=== PATIENT | female | born 1970 | race Caucasian/White ===

== ENCOUNTER 2018-05-09 07:42 | Inpatient (IN) | payer BC, OTHER ==
--- NOTE | 2018-05-09 08:35 | PDOC ---
History of Present Illness - General Chief Complaint: Chest Pain Stated Complaint: CHEST PAIN,HTN Time Seen by Provider: 05/09/18 08:02 - History of Present Illness Initial Comments: 05/09/18 08:13 47 yo female with PMH HTN, NIDDM, Hypothyroidism presents this morning with complaint of chest tightness, difficulty breathing, and feeling flushed this morning. She states she woke up feeling off and as if her blood pressure was high. She states she spent some extra time in the shower trying to relax and feel better which she states helped a little however as she was leaving for work and driving in her symptoms returned and she felt it necessary to come to the ED for evaluation. She states she has had similar sypmtoms in the past however never this severe. She does admit some increased stressor at home including construction on her home and a grandson who was recently born prematurely. At this time she states her symptoms have mostly resolved and that she is feeling better than earlier. Past History - Travel Traveled outside of the country in the last 30 days: No - Past Medical History Allergies/Adverse Reactions: Allergies Allergy/AdvReac Type Severity Reaction Status Date / Time No Known Allergies Allergy Verified 08/30/15 20:55 Home Medications: Ambulatory Orders Azilsartan Med/Chlorthalidone [Edarbyclor 40-25 mg Tablet] 1 each PO DAILY 08/29 Insulin Pump Cartridge [Cartridge Stamped] 1 each SQ DAILY 08/30/15 Levothyroxine [Synthroid -] 150 mcg PO DAILY 08/30/15 Diabetes: Yes HTN: Yes Thyroid Disease: Yes (Hypo s/p nuclear ablation) - Immunization History Immunization Up to Date: No - Suicide/Smoking/Psychosocial Hx Smoking Status: No Smoking History: Never smoked Have you smoked in the past 12 months: No Number of Cigarettes Smoked Daily: 0 Hx Alcohol Use: No Drug/Substance Use Hx: No Substance Use Type: Alcohol Review of Systems - Review of Systems Able to Perform ROS?: Yes Constitutional: Yes: Weakness. No: Chills, Fever HEENTM: No: Blurred Vision Respiratory: Yes: Shortness of Breath. No: Cough Cardiac (ROS): Yes: Chest Tightness *Physical Exam - Physical Exam Comments: 05/09/18 08:13 GEN: A&O, moderate distress initially, now resolved HEENT: PERRL, Moist mucus membranes NECK: supple, no lymphadenopathy, no thyroid nodules or enlargement palpated HEART: Tachycardic, regular rhythm, mild systolic clicking murmur difficult to appreciate due to tachycardia LUNGS: CTA b/l ABDOMEN: Soft, nontender EXTREMITIES: No calf tenderness Heart Score/ECG Review - History History: Slightly suspicious - Electrocardiogram EKG: Normal - Age Age: 45-65 - Risk Factors Risk Factors Heart Score: Yes Hx Hypertension, Yes Hx Diabetes Based on the list above the patient has:: 1-2 risk factors ED Treatment Course - LABORATORY CBC & Chemistry Diagram: 05/09/18 08:32 05/09/18 08:17 Medical Decision Making - Medical Decision Making 05/09/18 08:14 47 yo female presents with chest tightness, difficulty breathing, and tearfulness. EKG noted with mild peaking of T waves diffusely. Will check CBC, BMP, Troponin, D-dimer as patient tachypnic and tachycardic. Ddx at this time includes ACS/PE/Anxiety 05/09/18 10:12 CBC wnl. Troponin negative and EKG as above. However K noted to be 6.1, Na noted 126 (corrects to 136 after accounting for glucose 496), will give 1L NS. Pt has an insulin pump and just received 6 units insulin. Will recheck BMP with second troponin. BUN/Cr also noted elevated 30/2.3. Pt states she has been referred to a plywood patcher but has not followed up recently. She also endorses recent lab work at her primary which will be requested. Will give Kayexalate and Calcium gluconate in addition to insulin already received. 05/09/18 10:19 Case discussed with nephrology who recommends overnight observation to correct K +, monitor on telemetry, and monitor BUN/Cr with fluid administration. 05/09/18 10:45 Repeat BGM 321 following 6 units insulin and 200 cc fluid 05/09/18 11:47 Discussed with Hospitalist for tele Obs due to hyperkalemia and EKG changes who agrees to overnight monitoring and repeat labs to verify corrected K+ *DC/Admit/Observation/Transfer Diagnosis at time of Disposition: Hyperkalemia, Renal insufficiency - Discharge Dispostion Condition at time of disposition: Stable Decision to Admit order: Yes - Referrals - Patient Instructions - Post Discharge Activity
[2018-05-09 08:42] VITALS: BMI 25.7
[2018-05-09 08:57] LABS: BASO % 0.9 % (0-2.0); HEMATOCRIT 27.3 % (32.4-45.2); HEMOGLOBIN 9.1 GM/dL (10.7-15.3); LYMPH % 14.3 % (8-40); MCH 32.7 pg (25.7-33.7); MCHC 33.5 g/dl (32.0-36.0); MEAN CELL VOLUME 97.9 fl (80-96); MEAN PLT VOLUME 9.7 fl (7.5-11.1); MONO % 5.2 % (3.8-10.2); NEUT % 72.6 % (42.8-82.8); PLATELET COUNT 236 K/MM3 (134-434); RBC 2.79 M/mm3 (3.60-5.2); RDW 13.8 % (11.6-15.6); WHITE BLOOD COUNT 5.7 K/mm3 (4.0-10.0)
[2018-05-09 09:40] LABS: ANION GAP 10 MMOL/L (8-16); BLOOD UREA NITROGEN 66 mg/dL (7-18); CHLORIDE 98 mmol/L (98-107); CO2 18 mmol/L (21-32); CREATININE 2.3 mg/dL (0.55-1.3); SODIUM 126 mmol/L (136-145)
--- NOTE | 2018-05-09 09:49 | PDOC ---
Attending Attestation - Resident Resident Name: Jeroym Kurtz - ED Attending Attestation I have performed the following: I have examined & evaluated the patient, The case was reviewed & discussed with the resident, I agree w/resident's findings & plan, Exceptions are as noted - HPI HPI: 05/10/18 20:16 47 yo F h/o HTN, NIDDM, Hypothyroidism presents this morning with complaint of chest tightness, difficulty breathing, and feeling flushed this morning.. Symptoms persisted despite long shower to calm herself down At this time she states her symptoms have mostly resolved and that she is feeling better than earlier. - Physicial Exam PE: 05/10/18 20:15 GENERAL: The patient is in no acute distress. NECK: Normal range of motion, supple LUNGS: Breath sounds equal, clear to auscultation bilaterally. No wheezes, and no crackles. HEART:Regular rate and rhythm, normal S1 and S2 without murmur, rub or gallop. ABDOMEN: Soft, nontender EXTREMITIES: Normal range of motion, no edema. NEUROLOGICAL: Cranial nerves II through XII grossly intact. Normal speech. No focal neurological deficits. SKIN: Warm, Dry, normal turgor, no rashes or lesions noted. - Medical Decision Making 05/09/18 09:49 Laboratory Tests 08/30/15 05/09/18 05/09/18 21:23 08:17 08:32 WBC 7.6 5.7 Hgb 8.6 L D 9.1 L Hct 26.3 L 27.3 L Plt Count 244 236 Sodium 126 L Chloride 98 Carbon Dioxide 18 L BUN 66 H Creatinine 2.3 H Creatine Kinase 261 H Troponin I < 0.02 CXR: nml Creatinine elevated (similar to baseline) Trop negative Hgb stable Potassium elevated Will hydrate, Calcium, pt gave herself Insulin already Clinical Impression: Renal insufficiency, initial presentation Hyperkalemia, initial presentation *DC/Admit/Observation/Transfer Diagnosis at time of Disposition: Hyperkalemia, Renal insufficiency - Discharge Dispostion Disposition: HOME Condition at time of disposition: Stable Decision to Admit order: Yes - Referrals - Patient Instructions - Post Discharge Activity
[2018-05-09] MEDS ORDERED: SODIUM CHLORIDE 0.9% 500 ML INFUS.BAG IV ONE (09:56)
[2018-05-09 09:58] LABS: GLUCOSE,RANDOM 496 mg/dL (74-106); POTASSIUM 6.1 mmol/L (3.5-5.1)
[2018-05-09] MEDS ORDERED: CALCIUM GLUCONATE 10% - 1,000 MG/10 ML VIAL IVPUSH ONE (10:23)
[2018-05-09] MEDS ORDERED: SODIUM POLYSTYRENE SULFONATE 15 GM/60 ML BOTTLE PO ONE (10:23)
[2018-05-09] MEDS ORDERED: CALCIUM GLUCONATE 10% - 1,000 MG/10 ML VIAL ONE (10:27)
[2018-05-09] MEDS ORDERED: SODIUM POLYSTYRENE SULFONATE 15 GM/60 ML BOTTLE ONE (10:28)
[2018-05-09 10:49] LABS: URINE APPEARANCE CLEAR; URINE BILIRUBIN NEGATIVE (<2.0 mg/dL); URINE COLOR STRAW; URINE GLUCOSE (UA) 3+ (NEGATIVE); URINE KETONE NEGATIVE (NEGATIVE); URINE LEUK ESTERASE NEGATIVE (NEGATIVE); URINE NITRITE POSITIVE (NEGATIVE); URINE PROTEIN 2+ (NEGATIVE); URINE UROBILINOGEN NEGATIVE mg/dL (0.2-1.0)
[2018-05-09 10:53] LABS: HCG,QUALITATIVE URINE Negative
[2018-05-09 11:02] LABS: EPI CELLS RARE /HPF (FEW); URINE BACTERIA RARE /hpf (NONE SEEN); URINE HYALINE CAST 1 /lpf
--- NOTE | 2018-05-09 12:46 | HP ---
CHIEF COMPLAINT: Chest tightness PCP: Dr. Juárez HISTORY OF PRESENT ILLNESS: 47 y/o F with PMH of HTN, IDDM (on insulin pump), hypothyroidism, CKD presents to the ER with chest tightness. She awoke suddenly this AM with some difficulty breathing and felt flushed. She checked herself in the mirror and noticed some pale skin and started to become anxious and started having chest tightness and worsening of SOB. Chest tightness did not radiate anywhere. She checked her sugar in the AM and it was in the 50s and she drank some orange juice. She tried to go to work but on her way there started feeling faint and light-headed and dizzy and decided to come to the ER. She did not have LOC. She denies sick contacts. She is compliant with her meds. She denies chest pain, abd pain, change in bowel or bladder habits, blood in urine or stool, LE edema. She has been having abd cramping and calf cramp for approximately 1 week. She is currently having her period. She is feeling better currently. Of note she took 400 mg of ibuprofen last night. She has not followed with nephrology in a couple of years. ER course was notable for: (1) kayexelate, calcium gluconate, NS (2) (3) PAST MEDICAL HISTORY:HTN, IDDM (on insulin pump), hypothyroidism, CKD PAST SURGICAL HISTORY: b/l breast implants Social History: Smoking: denies Alcohol: social Drugs: denies Works as instructor correspondence school Family History: Father (passed) with DM2 and HTN Allergies No Known Allergies Allergy (Verified 08/30/15 20:55) HOME MEDICATIONS: Home Medications Medication Instructions Recorded Olmesaratan/HCTZ 40-25mg Insulin Pump Cartridge [Cartridge 1 each SQ DAILY 08/30/15 Stamped] Levothyroxine [Synthroid -] 150 mcg PO DAILY 08/30/15 REVIEW OF SYSTEMS CONSTITUTIONAL: Absent: fever, chills CARDIOVASCULAR: +chest tightness, lightheadedness Absent: chest pain, syncope, peripheral edema RESPIRATORY: SOB Absent: cough GASTROINTESTINAL: +chronic constipation Absent: abdominal pain, nausea, vomiting, diarrhea, hematochezia GENITOURINARY: Absent: dysuria, frequency, hematuria MSK: +calf cramping NEUROLOGIC: +dizziness Absent: headache, focal weakness or paresthesias PSYCHIATRIC: +anxiety PHYSICAL EXAMINATION Vital Signs - 24 hr 05/09/18 05/09/18 08:00 08:54 Temperature 96.9 F L Pulse Rate 89 85 Pulse Rate [ 85 Apical] Respiratory 18 16 Rate Blood Pressure 169/82 Blood Pressure 129/70 [Right] O2 Sat by Pulse 100 100 Oximetry (%) GENERAL: Awake, alert, and fully oriented, in no acute distress. HEAD: Normal with no signs of trauma. EYES: extraocular movements intact, sclera anicteric, conjunctiva clear. EARS, NOSE, THROAT: Ears normal, nares patent, oropharynx clear without exudates. NECK: Normal range of motion, supple LUNGS: Breath sounds equal, clear to auscultation bilaterally. HEART: Regular rate and rhythm, normal S1 and S2 without murmur, rub or gallop. ABDOMEN: Soft, nontender, not distended, normoactive bowel sounds, no guarding LOWER EXTREMITIES: warm, well-perfused. No peripheral edema. NEUROLOGICAL: Cranial nerves II-XII grossly intact. Normal speech. Gait not observed. PSYCHIATRIC: Cooperative. Good eye contact. Appropriate mood and affect. SKIN: Warm, dry Laboratory Results - last 24 hr 05/09/18 05/09/18 05/09/18 08:17 08:32 08:32 WBC 5.7 RBC 2.79 L Hgb 9.1 L Hct 27.3 L MCV 97.9 H MCH 32.7 MCHC 33.5 RDW 13.8 Plt Count 236 MPV 9.7 Absolute Neuts (auto) 4.1 Neutrophils % 72.6 Lymphocytes % 14.3 D Monocytes % 5.2 Eosinophils % 7.0 H Basophils % 0.9 Nucleated RBC % 0 D-Dimer Cancelled Sodium 126 L Potassium 6.1 H* Chloride 98 Carbon Dioxide 18 L Anion Gap 10 BUN 66 H Creatinine 2.3 H Creat Clearance w eGFR 22.73 POC Glucometer Random Glucose 496 H* Calcium 8.0 L Creatine Kinase 261 H Creatine Kinase Index 0.7 CK-MB (CK-2) 2.0 Troponin I < 0.02 Urine Color Urine Appearance Urine pH Ur Specific [place] Urine Protein Urine Glucose (UA) Urine Ketones Urine Blood Urine Nitrite Urine Bilirubin Urine Urobilinogen Ur Leukocyte Esterase Urine WBC (Auto) Urine RBC (Auto) Ur Epithelial Cells Urine Bacteria Hyaline Casts Urine HCG, Qual 05/09/18 05/09/18 10:30 10:43 WBC RBC Hgb Hct MCV MCH MCHC RDW Plt Count MPV Absolute Neuts (auto) Neutrophils % Lymphocytes % Monocytes % Eosinophils % Basophils % Nucleated RBC % D-Dimer Sodium Potassium Chloride Carbon Dioxide Anion Gap BUN Creatinine Creat Clearance w eGFR POC Glucometer 327 Random Glucose Calcium Creatine Kinase Creatine Kinase Index CK-MB (CK-2) Troponin I Urine Color Straw Urine Appearance Clear Urine pH 6.0 Ur Specific [place] 1.010 Urine Protein 2+ H Urine Glucose (UA) 3+ H Urine Ketones Negative Urine Blood 1+ H Urine Nitrite Positive Urine Bilirubin Negative Urine Urobilinogen Negative Ur Leukocyte Esterase Negative Urine WBC (Auto) 5 Urine RBC (Auto) <1 Ur Epithelial Cells Rare Urine Bacteria Rare Hyaline Casts 1 Urine HCG, Qual Negative CXR: No acute pathology EKG: NSR @ 100 bpm. Peaked T waves noted. No ST segment elevations or depressions. TWI in AVL. No previous EKG to compare to. ASSESSMENT/PLAN: 47 y/o F with PMH of HTN, IDDM (on insulin pump), hypothyroidism presents to the ER with chest tightness. Obs for hyperkalemia and rule out acs. -Chest tightness -rule out acs -Trend trops -EKG PRN for pain -likely secondary to anxiety/hypogylcemia in AM -Hyperkalemia -No change in diet. CKD likely a contributing factor. -Given kayexalate and calcium gluconate in ER and 1L NS -Monitor potassium. Will recheck at 3pm -Will recheck EKG at 3pm as well -CKD -Last Cr was 1.7 at PCPs office on 04/08/18. When last seen by nephrology a couple of years ago it was 2.2 -Will continue to monitor -Avoid nephrotoxic agents -Nephrology consulted (Dr. Resendiz) -Uncontrolled IDDM -continue use of insulin pump with home dosage -BGM q4h -Anemia -secondary to CKD -at baseline -MCV elevated. Will check B12 and Folate -Hypothyroidism -c/w synthroid 150 mcg qd -HTN -will hold olmesartan/HCTZ 40-25mg until K normalizes -DVT ppx -Heparin 5000 units bid -EAM -FEN -Fluids as per nephrology -Monitor potassium. Pt has a history of hyponatremia. Na was 134 on 04/08/16. Corrected Na for hyperglycemia here is 132. -Low potassium, diabetic diet -Dispo: tele obs Visit type - Emergency Visit Emergency Visit: Yes ED Registration Date: 05/09/18 Care time: The patient presented to the Emergency Department on the above date and was hospitalized for further evaluation of their emergent condition. - New Patient This patient is new to me today: Yes Date on this admission: 05/09/18 - Critical Care Critical Care patient: No
[2018-05-09] MEDS ORDERED: INSULIN (LEVEMIR) 100 UNITS/ML UNITS SQ ONE ×2 (13:00→14:15)
--- NOTE | 2018-05-09 13:44 | CONSULT ---
Consult - text type - Consultation Consultation Note: Renal Consult for Hyperkalemia and CKD This is a 47 year old woman with hx fo DM on insulin, Hypothryodism, CKD stage 3 who presented with sob and chest tightness and found to have Cr of 2.3 and K of 6.1. Pt was seen in our office by Dr. Gastelum 05-10-2017 and Cr at that time was 2. Pt reports that she did take 2 ibuprofen tablets yesterday for body aches. Denies any N/V/D. Has maintained good oral intake including liquids. No flank pain, dysuria noted. Pt was on ARB and HCTZ at home. No on IVF. CP now resolved. PMhx: as above Allergies: NKDA Family Hx: NC Social Hx: No T/A/D ROS: as per HPI, all other pertinent ros negative Home Medications Medication Instructions Recorded Azilsartan Med/Chlorthalidone 1 each PO DAILY 08/30/15 [Edarbyclor 40-25 mg Tablet] Insulin Pump Cartridge [Cartridge 1 each SQ DAILY 08/30/15 Stamped] Levothyroxine [Synthroid -] 150 mcg PO DAILY 08/30/15 Vital Signs Temperature 96.9 F L 05/09/18 08:00 Pulse Rate 85 05/09/18 08:54 Respiratory Rate 16 05/09/18 08:54 Blood Pressure 129/70 05/09/18 08:54 O2 Sat by Pulse Oximetry (%) 100 05/09/18 08:54 Intake & Output 05/06/18 05/07/18 05/08/18 05/09/18 23:59 23:59 23:59 23:59 Weight 65.771 kg NAD awake and alert neck supple no JVD No LE edema CBC, BMP 05/09/18 08:32 05/09/18 08:17 Current Medications Heparin Sodium (Porcine) (Heparin -) 5,000 unit SQ BID IGOR Insulin Aspart (Novolog Vial Sliding Scale -) 1 vial SQ ACHS [facility]; Protocol Levothyroxine Sodium (Synthroid -) 150 mcg PO DAILY@0700 [facility] 47 year old woman with hx fo DM on insulin, Hypothryodism, CKD stage 3 who presented with sob and chest tightness and found to have Cr of 2.3 and K of 6.1. 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 Hold ARB/HCTZ for now. If BP becomes elevated can add CCB. No indication for renal imaging at this time. Repeat BMP in 6 hours. Kayexalate given. If serum K improved to < 5.5 can resume ARB/HCTZ and advise good oral hydration and avoidance of NSAIDS. Will need outpatient follow up for her CKD. If serum Bicarb < 20 on repeat labs start oral sodium bicarb 650mg Dialy. Continue Insulin as per primary team Check iron studies, can consider GI work up as an outpatient if already has not been done. Thank you Juan Carlos Resendiz DO
[2018-05-09] MEDS ORDERED: SODIUM CHLORIDE 1,000 ML IV SCH (13:45)
[2018-05-09 14:05] LABS: MAGNESIUM 2.3 mg/dL (1.8-2.4)
--- NOTE | 2018-05-09 16:03 | PN ---
Teaching Attending Note Name of Resident: Neel Arias ATTENDING PHYSICIAN STATEMENT I saw and evaluated the patient. I reviewed the resident's note and discussed the case with the resident. I agree with the resident's findings and plan as documented. SUBJECTIVE: Feels better - no more chest tightness, flushing, dyspnea. No abdominal pain/nausea/vomiting. No fever/chills. OBJECTIVE: Afebrile, Hemodynamically Stable. Last Vital Signs Temp Pulse Resp BP Pulse Ox 98.2 F 83 18 154/80 98 05/09/18 15:24 05/09/18 15:24 05/09/18 15:24 05/09/18 15:24 05/09/18 15:24 HEENT - Atraumatic, Normocephalic, no pharyngeal erythema/exudate. Heart - S1, S2, RRR Lungs - clear to auscultation Abdomen - Soft, non-tender. Bowel Sounds normal. Extremities - no edema. No calf tenderness Neuro - AAO x 3. Tone/Power normal all 4 extremities Laboratory Results - last 24 hr 05/09/18 05/09/18 05/09/18 08:17 08:32 08:32 WBC 5.7 RBC 2.79 L Hgb 9.1 L Hct 27.3 L MCV 97.9 H MCH 32.7 MCHC 33.5 RDW 13.8 Plt Count 236 MPV 9.7 Absolute Neuts (auto) 4.1 Neutrophils % 72.6 Lymphocytes % 14.3 D Monocytes % 5.2 Eosinophils % 7.0 H Basophils % 0.9 Nucleated RBC % 0 D-Dimer Cancelled Sodium 126 L Potassium 6.1 H* Chloride 98 Carbon Dioxide 18 L Anion Gap 10 BUN 66 H Creatinine 2.3 H Creat Clearance w eGFR 22.73 POC Glucometer Random Glucose 496 H* Calcium 8.0 L Phosphorus 5.0 H Magnesium 2.3 Creatine Kinase 261 H Creatine Kinase Index 0.7 CK-MB (CK-2) 2.0 Troponin I < 0.02 Urine Color Urine Appearance Urine pH Ur Specific [place] Urine Protein Urine Glucose (UA) Urine Ketones Urine Blood Urine Nitrite Urine Bilirubin Urine Urobilinogen Ur Leukocyte Esterase Urine WBC (Auto) Urine RBC (Auto) Ur Epithelial Cells Urine Bacteria Hyaline Casts Urine HCG, Qual 05/09/18 05/09/18 10:30 10:43 WBC RBC Hgb Hct MCV MCH MCHC RDW Plt Count MPV Absolute Neuts (auto) Neutrophils % Lymphocytes % Monocytes % Eosinophils % Basophils % Nucleated RBC % D-Dimer Sodium Potassium Chloride Carbon Dioxide Anion Gap BUN Creatinine Creat Clearance w eGFR POC Glucometer 327 Random Glucose Calcium Phosphorus Magnesium Creatine Kinase Creatine Kinase Index CK-MB (CK-2) Troponin I Urine Color Straw Urine Appearance Clear Urine pH 6.0 Ur Specific [place] 1.010 Urine Protein 2+ H Urine Glucose (UA) 3+ H Urine Ketones Negative Urine Blood 1+ H Urine Nitrite Positive Urine Bilirubin Negative Urine Urobilinogen Negative Ur Leukocyte Esterase Negative Urine WBC (Auto) 5 Urine RBC (Auto) <1 Ur Epithelial Cells Rare Urine Bacteria Rare Hyaline Casts 1 Urine HCG, Qual Negative Current Medications Generic Name Dose Route Start Last Admin Trade Name Cordellq PRN Reason Stop Dose Admin Heparin Sodium (Porcine) 5,000 unit 05/09/18 22:00 Heparin - SQ BID IGOR Sodium Chloride 1,000 mls @ 100 mls/hr 05/09/18 13:45 05/09/18 14:16 Normal Saline - IV 100 mls/hr ASDIR IGOR Administration Insulin Aspart 1 vial 05/09/18 16:30 Novolog Vial Sliding Scale - SQ ACHS [facility] Protocol Levothyroxine Sodium 150 mcg 05/10/18 07:00 Synthroid - PO DAILY@0700 [facility] Home Medications Medication Instructions Recorded Azilsartan Med/Chlorthalidone 1 each PO DAILY 08/30/15 [Edarbyclor 40-25 mg Tablet] Insulin Pump Cartridge [Cartridge 1 each SQ DAILY 08/30/15 Stamped] Levothyroxine [Synthroid -] 150 mcg PO DAILY 08/30/15 ASSESSMENT AND PLAN: 47 year old female with HTN, DM 2 (on insulin pump), Hypothyroidism, CKD 3, presented to ED with complaints of chest tightness, dyspnea, flushing, lightheadedness with fingerstick glucose in 50s, found to have hyperkalemia and hyperglycemia in ED after drinking orange juice. 1. Atypical Chest Pain Troponin negative, ECG - SR, no acute changes, some peaking of T waves Currently pain free Teleobs with serial Troponin measurements, Echo, and Exercise Stress in AM 2. RAJEEV on CKD 3 with Hyperkalemia and Metabolic Acidosis Baseline Creat 1.7-2.0 Evaluated by Nephrology - for hydration and repeat labs. If Bicarb < 20 on repeat labs, will start Bicarb supplementation as per Nephrology. 3. DM 2, uncontrolled, recent A1C 9.3 s/p 6 units insulin in ED Resume insulin pump with regular fingerstick glucose checks. 4. Macrocytic Anemia, likely multifactorial - sec to CKD 3, possible B12/Folate deficiency - levels requested. 5. Hypothyroidism TSH 0.6 on labs 1 month ago Continue Synthroid. Will recheck TSH. 6. HTN - normally on Olmesartan/HCTZ - will hold given RAJEEV and hyperkalemia. 7. Pseudohyponatremia - Na corrected for glucose - 132. HCTZ held. DVT Px - Heparin SQ
--- NOTE | 2018-05-09 16:52 | EKG ---
Test Reason : Blood Pressure : / mmHG Vent. Rate : 100 BPM Atrial Rate : 100 BPM P-R Int : 126 ms QRS Dur : 080 ms QT Int : 350 ms P-R-T Axes : 067 021 064 degrees QTc Int : 451 ms NORMAL SINUS RHYTHM NORMAL ECG WHEN COMPARED WITH ECG OF 23-JAN-2006 18:50, NONSPECIFIC T WAVE ABNORMALITY NO LONGER EVIDENT IN INFERIOR LEADS NONSPECIFIC T WAVE ABNORMALITY NO LONGER EVIDENT IN ANTERIOR LEADS Confirmed by SHASHANK JOEL, D[place] ([id number]) on 05/09/2018 4:52:05 PM Referred By: Confirmed By:DALLAS ENCARNACION MD
--- NOTE | 2018-05-09 16:57 | EKG ---
Test Reason : Blood Pressure : / mmHG Vent. Rate : 077 BPM Atrial Rate : 077 BPM P-R Int : 124 ms QRS Dur : 080 ms QT Int : 376 ms P-R-T Axes : 065 013 041 degrees QTc Int : 425 ms NORMAL SINUS RHYTHM NORMAL ECG WHEN COMPARED WITH ECG OF 09-MAY-2018 07:53, NO SIGNIFICANT CHANGE WAS FOUND Confirmed by DALLAS ENCARNACION MD ([id number]) on 05/09/2018 4:57:33 PM Referred By: Confirmed By:D[place]AS ENCARNACION MD
[2018-05-09] MEDS: INSULIN SLIDING SCALE (NOVOLOG) 1 VIAL SQ SCH ×2 (17:14→21:05)
[2018-05-09 18:23] LABS: ANION GAP 7 MMOL/L (8-16); BLOOD UREA NITROGEN 56 mg/dL (7-18); CALCIUM 7.8 mg/dL (8.5-10.1); CHLORIDE 112 mmol/L (98-107); CO2 19 mmol/L (21-32); CREATININE 1.7 mg/dL (0.55-1.3); GLUCOSE,RANDOM 70 mg/dL (74-106); POTASSIUM 4.6 mmol/L (3.5-5.1); SODIUM 138 mmol/L (136-145)
[2018-05-09] MEDS: ACETAMINOPHEN 325 MG TABLET (FP) PO PRN (19:55)
[2018-05-09] MEDS ORDERED: ACETAMINOPHEN 325 MG TABLET (FP) PO ONE (21:13)
[2018-05-09] MEDS: HEPARIN NA (PORCINE) 5,000 UNITS/ML 1ML VIAL SQ SCH (21:25)
[2018-05-09] MEDS: FLUTICASONE PROP 0.05% 16 GM NASAL SPRAY NS SCH (22:17)
[2018-05-09] MEDS: DEXTROSE 5%-NORMAL SALINE 1,000 ML IV SCH (23:04)
[2018-05-10] MEDS: ACETAMINOPHEN 325 MG TABLET (FP) PO PRN (05:48)
[2018-05-10] MEDS: INSULIN SLIDING SCALE (NOVOLOG) 1 VIAL SQ SCH ×2 (06:24→12:23)
[2018-05-10] MEDS ORDERED: LEVOTHYROXINE NA 75 MCG TABLET (FP) PO SCH (07:00)
[2018-05-10 07:01] LABS: HEMATOCRIT 22.4 % (32.4-45.2); HEMOGLOBIN 7.6 GM/dL (10.7-15.3); MCH 32.5 pg (25.7-33.7); MCHC 33.7 g/dl (32.0-36.0); MEAN CELL VOLUME 96.4 fl (80-96); MEAN PLT VOLUME 9.7 fl (7.5-11.1); PLATELET COUNT 203 K/MM3 (134-434); RBC 2.33 M/mm3 (3.60-5.2); RDW 13.8 % (11.6-15.6); WHITE BLOOD COUNT 4.1 K/mm3 (4.0-10.0)
[2018-05-10 07:08] LABS: ANION GAP 7 MMOL/L (8-16); BLOOD UREA NITROGEN 43 mg/dL (7-18); CHLORIDE 114 mmol/L (98-107); CO2 19 mmol/L (21-32); CREATININE 1.3 mg/dL (0.55-1.3); GLUCOSE,RANDOM 179 mg/dL (74-106); SODIUM 140 mmol/L (136-145)
[2018-05-10] MEDS ORDERED: LEVOTHYROXINE NA 125 MCG TABLET (FP) PO SCH (08:07)
[2018-05-10] MEDS ORDERED: CALCIUM GLUCONATE 10% - 1,000 MG/10 ML VIAL IVPB ONE (08:30)
[2018-05-10] MEDS: DEXTROSE 5%-NORMAL SALINE 1,000 ML IV SCH (09:26)
[2018-05-10] MEDS: FLUTICASONE PROP 0.05% 16 GM NASAL SPRAY NS SCH (09:36)
[2018-05-10] MEDS: HEPARIN NA (PORCINE) 5,000 UNITS/ML 1ML VIAL SQ SCH (09:37)
[2018-05-10] MEDS ORDERED: PATIENT'S OWN MEDICATION (NON-FORMULARY) (Olmesartan/Hydrochlorothiazide [Benicar Hct 40-2 PO SCH (10:00)
[2018-05-10] MEDS ORDERED: SODIUM BICARBONATE 650 MG TABLET PO SCH (10:00)
[2018-05-10] MEDS ORDERED: VALSARTAN 160 MG TABLET (UD) PO SCH (10:15)
[2018-05-10] MEDS ORDERED: HYDROCHLOROTHIAZIDE 25 MG TABLET (FP) PO SCH (10:15)
--- NOTE | 2018-05-10 11:31 | PN ---
Teaching Attending Note Name of Resident: Ana Ni ATTENDING PHYSICIAN STATEMENT I saw and evaluated the patient. I reviewed the resident's note and discussed the case with the resident. I agree with the resident's findings and plan as documented. SUBJECTIVE: Feels better - no more chest tightness, flushing, dyspnea. No abdominal pain/nausea/vomiting. No fever/chills. OBJECTIVE: Afebrile, Hemodynamically Stable. Last Vital Signs Temp Pulse Resp BP Pulse Ox 98.1 F 86 18 146/72 100 05/10/18 06:00 05/10/18 06:00 05/10/18 06:00 05/10/18 06:00 05/09/18 19:42 Heart - S1, S2, RRR Lungs - clear to auscultation Abdomen - Soft, non-tender. Bowel Sounds normal. Extremities - no edema. No calf tenderness Laboratory Results - last 24 hr 05/09/18 05/09/18 05/09/18 08:17 15:00 17:05 WBC RBC Hgb Hct MCV MCH MCHC RDW Plt Count MPV Sodium 126 L 138 Potassium 6.1 H* 4.6 Chloride 98 112 H Carbon Dioxide 18 L 19 L Anion Gap 10 7 L BUN 66 H 56 H Creatinine 2.3 H 1.7 H Creat Clearance w eGFR 22.73 32.22 POC Glucometer 73 Random Glucose 496 H* 70 L Calcium 8.0 L 7.8 L Phosphorus 5.0 H Magnesium 2.3 Ferritin 41.9 Creatine Kinase 261 H 240 H Creatine Kinase Index 0.7 0.7 CK-MB (CK-2) 2.0 1.7 Troponin I < 0.02 0.02 Vitamin B12 1252 H Serum Folate 29 H TSH 05/09/18 05/09/18 05/10/18 20:55 22:45 01:50 WBC RBC Hgb Hct MCV MCH MCHC RDW Plt Count MPV Sodium Potassium Chloride Carbon Dioxide Anion Gap BUN Creatinine Creat Clearance w eGFR POC Glucometer 123 104 Random Glucose Calcium Phosphorus Magnesium Ferritin Creatine Kinase 195 H Creatine Kinase Index 0.6 CK-MB (CK-2) 1.3 Troponin I 0.04 Vitamin B12 Serum Folate TSH 05/10/18 05/10/18 05/10/18 05:40 06:00 06:00 WBC 4.1 RBC 2.33 L Hgb 7.6 L Hct 22.4 L D MCV 96.4 H MCH 32.5 MCHC 33.7 RDW 13.8 Plt Count 203 MPV 9.7 Sodium 140 Potassium 5.0 Chloride 114 H Carbon Dioxide 19 L Anion Gap 7 L BUN 43 H Creatinine 1.3 Creat Clearance w eGFR 43.90 POC Glucometer 184 Random Glucose 179 H Calcium 7.0 L Phosphorus Magnesium Ferritin Creatine Kinase Creatine Kinase Index CK-MB (CK-2) Troponin I Vitamin B12 Serum Folate TSH 0.28 L Current Medications Generic Name Dose Route Start Last Admin Trade Name Freq PRN Reason Stop Dose Admin Acetaminophen 650 mg 05/09/18 19:45 05/10/18 05:48 Tylenol - PO 650 mg Q4H PRN Administration HEADACHE Fluticasone Propionate 1 spray 05/09/18 21:45 05/10/18 09:36 Flonase - NS 1 inh DAILY IGOR Administration Heparin Sodium (Porcine) 5,000 unit 05/09/18 22:00 05/10/18 09:37 Heparin - SQ 5,000 unit BID IGOR Administration Hydrochlorothiazide 25 mg 05/10/18 10:15 Hctz - PO DAILY [facility]OR Dextrose/Sodium Chloride 1,000 mls @ 83 mls/hr 05/09/18 23:00 05/10/18 09:26 D5-Ns - IV 83 mls/hr ASDIR [facility]OR Administration Insulin Aspart 1 vial 05/09/18 16:30 05/10/18 06:24 Novolog Vial Sliding Scale - SQ Not Given ACHS [facility] Protocol Levothyroxine Sodium 125 mcg 05/10/18 08:07 Synthroid - PO DAILY@0700 [facility] Sodium Bicarbonate 650 mg 05/10/18 10:00 05/10/18 09:37 Sodium Bicarbonate - PO 650 mg DAILY [facility] Administration Valsartan 320 mg 05/10/18 10:15 Diovan - PO DAILY [facility] ASSESSMENT AND PLAN: 47 year old female with HTN, DM 2 (on insulin pump), Hypothyroidism, CKD 3, presented to ED with complaints of chest tightness, dyspnea, flushing, lightheadedness with fingerstick glucose in 50s, found to have hyperkalemia and hyperglycemia in ED after drinking orange juice. 1. Atypical Chest Pain Troponin negative x 3, ECG - SR, no acute changes, some peaking of T waves Currently pain free Medically optimized for Discharge pending Echo and Exercise Stress Test. 2. RAJEEV on CKD 3 with Hyperkalemia and Metabolic Acidosis - resolved with IV Hydration. K 5.0 s/p Kayexalate Evaluated by Nephrology Started on Sodium Bicarb supplementation by Nephrology. Nephrology follow up as out-patient. 3. DM 2, uncontrolled, recent A1C 9.3 s/p 6 units insulin in ED for Hyperglycemia Resumed on insulin pump with regular fingerstick glucose checks. 4. Macrocytic Anemia, likely multifactorial - sec to CKD 3. B12/Folate 1252/29. 5. Hypothyroidism TSH 0.28 Decrease Synthroid to 125mcg 6. HTN - normally on Olmesartan/HCTZ - will resume. 7. Pseudohyponatremia - corrected. Na now 140. DVT Px - Heparin SQ
--- NOTE | 2018-05-10 12:32 | PN ---
Progress Note (short form) - Note Progress Note: Renal follow up for RAJEEV/Hyperkalemia Pt seen and examined at the bedside has a headache awaiting stress test on IVF no chest pain, abd pain, n/v/d Vital Signs Temperature 98.1 F 05/10/18 06:00 Pulse Rate 86 05/10/18 06:00 Respiratory Rate 18 05/10/18 06:00 Blood Pressure 146/72 05/10/18 06:00 O2 Sat by Pulse Oximetry (%) 100 05/09/18 19:42 Intake & Output 05/07/18 05/08/18 05/09/18 05/10/18 23:59 23:59 23:59 23:59 Intake Total 1003 581 Balance 1003 581 Weight 62.766 kg NAD awake and alert neck supple no JVD No LE edema CBC, BMP 05/10/18 06:00 05/10/18 06:00 Current Medications Acetaminophen (Tylenol -) 650 mg PO Q4H PRN PRN Reason: HEADACHE Last Admin: 05/10/18 05:48 Dose: 650 mg Fluticasone Propionate (Flonase -) 1 spray NS DAILY [facility] Last Admin: 05/10/18 09:36 Dose: 1 inh Heparin Sodium (Porcine) (Heparin -) 5,000 unit SQ BID [facility] Last Admin: 05/10/18 09:37 Dose: 5,000 unit Hydrochlorothiazide (Hctz -) 25 mg PO DAILY [facility] Last Admin: 05/10/18 12:24 Dose: 25 mg Dextrose/Sodium Chloride (D5-Ns -) 1,000 mls @ 83 mls/hr IV ASDIR [facility] Last Admin: 05/10/18 09:26 Dose: 83 mls/hr Insulin Aspart (Novolog Vial Sliding Scale -) 1 vial SQ ACHS [facility]; Protocol Last Admin: 05/10/18 12:23 Dose: Not Given Levothyroxine Sodium (Synthroid -) 125 mcg PO DAILY@0700 [facility] Sodium Bicarbonate (Sodium Bicarbonate -) 650 mg PO DAILY [facility] Last Admin: 05/10/18 09:37 Dose: 650 mg Valsartan (Diovan -) 320 mg PO DAILY [facility] Last Admin: 05/10/18 12:24 Dose: 320 mg 47 year old woman with hx fo DM on insulin, Hypothryodism, CKD stage 3 who presented with sob and chest tightness and found to have Cr of 2.3 and K of 6.1. #Hyperkalemia with mild EKG changes #RAJEEV on CKD (last Cr from PMD office was 1.7) #CKD likely diabetic nephropathy given preserved kidney size and proteinuria #CP/Chest tightness #Metabolic acidosis #Hyponatremia (corrected Na is 132) #Anemia Renal function and potassium improved restarted on Diovan/HCTZ today continue sodium bicarbonate daily Decrease IVF rate and discontinue IVF when no longer NPO. F/u iron studies, no acute indication for transfusion check stools for occult blood, may need GI work up as an outpatient Thank you Juan Carlos Resendiz DO
--- NOTE | 2018-05-10 14:06 | TRE ---
Protocol Name : VIDHI Max Work Load (METS*10) : 70 Time In Exercise Phase : 00:05:40 Max. Systolic BP : 210 mmHg Max Diastolic BP : 62 mmHg Max Heart Rate : 144 BPM Max Predicted Heart Rate : 173 BPM Attending Physician : DR. GOLDSTEIN Reason For Termination : ELEVATED B. P. Reason for Test : CHEST PAIN Stress Protocol : VIDHI Rest HR : 84 BPM PeakEx METs : 7.0 METS Recovery ECG Response (OLD) : Diagnosis : The patient completed 5:40 of a standard Vidhi Protocol achieving a work load of 7 METS. The resting heart rate of 74bpm tova to a peak of 144bpm, 83% of age predicted maximum. The resting BP of 162/74 tova to a peak of 210/62. The test was stopped due to hypertensive response to exercise. The resting ECG showed NSR at 73bpm. There were no arrhythmias and no diagnostic ischemic ST changes. CONCLUSION: 1. No ischemic ST changes or arrhythmias at the achieved heart rate of 144bpm, slightly submaximal exercise. 2. Hypertensive response to exercise. Confirmed by HERBERT GOLDSTEIN MD ([id number]) on 05/10/2018 2:05:41 PM
--- NOTE | 2018-05-10 14:54 | ECHO ---
Name: SAMARA LOCO Exam:Adult Echocardiogram Study Date: 05/10/2018 01:48 PM Age: 47 yrs Reason For Study: Chest pain Height: 63 in Weight: 138 lb BSA: 1.7 m2 MMode/2D Measurements & Calculations IVSd: 1.1 cm Ao root diam: 2.5 cm LVIDd: 4.9 cm LA dimension: 3.6 cm LVIDs: 3.2 cm LVPWd: 1.0 cm EDV(Teich): 115.4 ml LVOT diam: 2.0 cm ESV(Teich): 40.2 ml Doppler Measurements & Calculations MV E max raza: 89.8 cm/sec Ao V2 max: 163.9 cm/sec MV A max raza: 77.0 cm/sec Ao max P.7 mmHg MV E/A: 1.2 Ao V2 mean: 107.1 cm/sec MV dec time: 0.18 sec Ao mean P.4 mmHg Ao V2 VTI: 34.7 cm TR max raza: 266.0 cm/sec Med Peak E' Raza: 7.1 cm/sec TR max P.3 mmHg Med E/e': 12.6 Lat Peak E' Raza: 13.5 cm/sec Lat E/e': 6.7 Left Ventricle Left ventricular systolic function is normal. Ejection Fraction = 50-55%. Right Ventricle The right ventricle is normal in size and function. Atria Normal left and right atrial size and function. Mitral Valve The mitral valve is normal in structure and function. There is no mitral valve stenosis. There is mil d mitral regurgitation. Tricuspid Valve The tricuspid valve is normal in structure and function. There is mild tricuspid regurgitation. Aortic Valve The aortic valve is trileaflet. No hemodynamically significant valvular aortic stenosis. No aortic regurgitation is present. Pulmonic Valve The pulmonic valve is not well seen, but is grossly normal. There is no pulmonic valvular stenosis. T here is no pulmonic valvular regurgitation. Great Vessels The aortic root is normal size. Pericardium/Pleura There is no pericardial effusion. Interpretation Summary Left ventricular systolic function is normal. Ejection Fraction = 50-55%. The right ventricle is normal in size and function. There is mild mitral regurgitation. There is mild tricuspid regurgitation. There is no pericardial effusion. MD Seals *Jose 05/10/2018 02:53 PM
[2018-05-10 15:09] VITALS: BP 152/80; PULSE 83; TEMP 97.9
--- NOTE | 2018-05-10 15:26 | DS ---
Physical Exam: SUBJECTIVE: Patient seen this morning and reports no chest pain. No complaints and no acute events overnight. OBJECTIVE: Vital Signs Temperature 97.9 F 05/10/18 13:05 Pulse Rate 83 05/10/18 13:05 Respiratory Rate 18 05/10/18 13:05 Blood Pressure 152/80 05/10/18 13:05 O2 Sat by Pulse Oximetry (%) 100 05/10/18 09:00 PHYSICAL EXAM GENERAL: The patient is awake, alert, and fully oriented, in no acute distress. HEAD: Normal with no signs of trauma. EYES: PERRL, extraocular movements intact, sclera anicteric, conjunctiva clear. NECK: Trachea midline, full range of motion, supple. LUNGS: Breath sounds equal, clear to auscultation bilaterally, no wheezes, HEART: Regular rate and rhythm, S1, S2 without murmur, rub or gallop. ABDOMEN: Soft, nontender, nondistended, normoactive bowel sounds, no guarding SKIN: Warm, dry, normal turgor, no rashes or lesions noted. LABS Laboratory Results - last 24 hr CBC, BMP 05/10/18 06:00 05/10/18 06:00 HOSPITAL COURSE: Date of Admission:05/10/18 Patient admitted to the hospital with chest pain. Troponins negative x 3. EKG without any change or abnormalities. Stress test and echo negative. Patient vitals stable and discharged home. CXR: no acute pathology Stress test: no ischemic ST changes or arrhythmias, slightly submaximal excercise Echo: [id number] EKG: normal sinus, EF 50-55%, right ventricle is normal Date of Discharge: 05/10/18 Minutes to complete discharge: 36 Discharge Summary Reason For Visit: RENAL INSUFFICIENCY,HYPERKALEMIA Current Active Problems Renal insufficiency (Chronic) Condition: Stable - Instructions Diet, Activity, Other Instructions: You were admitted to the hospital because you had chest pain. We monitored your heart and found that it is functioning properly. You had a stress test which was normal. You can make an appointment with a senior revenue accountant, Dr. Leach, to continue to monitor the function of your heart. Please continue your home medications as prescribed. Please make an appointment with your primary care physician within one week. Return to the hospital if you have chest pain, nausea, vomiting, or shortness of breath. Referrals: Tracy Juárez MD [Primary Care Provider] - Yousuf Leach MD [Staff Physician] - Disposition: HOME - Home Medications Comprehensive Discharge Medication List: Ambulatory Orders Insulin Pump Cartridge [Cartridge Stamped] 1 each SQ DAILY 08/30/15 Levothyroxine [Synthroid -] 150 mcg PO DAILY 08/30/15 Olmesartan/Hydrochlorothiazide [Benicar Hct 40-25 mg Tablet] 1 each PO 05/10/18 This patient is new to me today: Yes Date on this admission: 05/11/18 Emergency Visit: No Critical Care patient: No - Discharge Referral Referred to [id number] No
[2018-05-12 04:09] LABS: SERUM IRON SATURATION 32 % (15-55); TOTAL IRON BINDING CAPACITY 276 ug/dL (250-450); UIBC 189 ug/dL (131-425)
== END 2018-05-10 17:20 | disposition home or self-care (01) | DRG 683 ==
LOC: JER 07:42 → JERBED 10:36 → J4S 14:31 → OBSVTOIN 05-10 10:42
DX: I12.9 Hypertensive chronic kidney disease with stage 1 through stage 4 chronic kidney disease, or unspecified chronic kidney disease (principal); N17.9 Acute kidney failure, unspecified; E87.2 Acidosis; E87.1 Hypo-osmolality and hyponatremia; R07.9 Chest pain, unspecified; E03.9 Hypothyroidism, unspecified; Z79.4 Long term (current) use of insulin; E87.5 Hyperkalemia; E11.22 Type 2 diabetes mellitus with diabetic chronic kidney disease; N18.9 Chronic kidney disease, unspecified; K59.00 Constipation, unspecified; E11.65 Type 2 diabetes mellitus with hyperglycemia; D63.1 Anemia in chronic kidney disease; F41.9 Anxiety disorder, unspecified; E11.21 Type 2 diabetes mellitus with diabetic nephropathy; D53.9 Nutritional anemia, unspecified
CPT/HCPCS: 36415; 71045-TC-FY; 80048; 81003; 81015; 82550; 82553; 82607; 82728; 82746; 82962; 83540; 83550; 83735; 84100; 84443; 84484; 84703; 85025; 85027; 93005; 93010; 93017; 93018; 93306-TC; 99285-25; G0378; J1644; J7030

== ENCOUNTER 2021-09-23 15:12 | Inpatient (IN) | payer BC, OTHER ==
[2021-09-23 15:32] VITALS: BMI 22.4
[2021-09-23] MEDS ORDERED: SODIUM CHLORIDE 1,000 ML IV STA (16:19)
[2021-09-23] MEDS ORDERED: morphine CARPU-JECT 4 MG/1 ML DISP.SYRIN IVPUSH ONE (16:19)
[2021-09-23] MEDS ORDERED: DICYCLOMINE HCL 20 MG TABLET PO ONE (16:19)
[2021-09-23] MEDS ORDERED: ONDANSETRON 4 MG/2 ML VIAL IVPUSH ONE (16:31)
[2021-09-23] MEDS ORDERED: morphine SULFATE 4 MG/ML VIAL ONE (16:57)
[2021-09-23] MEDS ORDERED: ONDANSETRON 4 MG/2 ML VIAL ONE (16:58)
[2021-09-23] MEDS ORDERED: DICYCLOMINE HCL 10 MG CAPSULE ONE (16:58)
[2021-09-23 16:59] LABS: VENOUS BASE EXCESS -3.3 mmol/L (-2-2); VENOUS O2 SATURATION 37.5 % (70-80); VENOUS PCO2 41.3 mmHg (38-52); VENOUS PH 7.347 (7.310-7.410)
[2021-09-23 17:00] LABS: EPI CELLS 16 /uL (0-25.1); HCG,QUALITATIVE URINE Negative; HYALINE CASTS 3 /uL (0-3.1); PH,URINE 5.5 (5.0-8.0); URINE APPEARANCE CLOUDY; URINE BACTERIA >9,000 /uL (0-1359); URINE BILIRUBIN NEGATIVE (NEGATIVE); URINE COLOR YELLOW; URINE GLUCOSE (UA) 2+ (NEGATIVE); URINE KETONE NEGATIVE (NEGATIVE); URINE LEUK ESTERASE 2+ (NEGATIVE); URINE NITRITE NEGATIVE (NEGATIVE); URINE PROTEIN 3+ (NEGATIVE); URINE RBC 4 /uL (0-23.9); URINE UROBILINOGEN 0.2 mg/dL (0.2-1.0); URINE WBC 607 /uL (0-25.8)
[2021-09-23 17:15] LABS: BASO % 0.5 % (0-2.0); HEMATOCRIT 25.3 % (32.4-45.2); HEMOGLOBIN 8.6 GM/dL (10.7-15.3); LYMPH % 6.6 % (8-40); MCH 31.5 pg (25.7-33.7); MEAN CELL VOLUME 92.5 fl (80-96); MONO % 9.3 % (3.8-10.2); NEUT % 82.6 % (42.8-82.8); PLATELET COUNT 290 10^3/uL (134-434); RBC 2.74 M/mm3 (3.60-5.2); RDW 13.9 % (11.6-15.6); WHITE BLOOD COUNT 12.8 K/mm3 (4.0-10.0)
[2021-09-23 17:26] LABS: CALCIUM 8.7 mg/dL (8.5-10.1)
[2021-09-23 17:27] LABS: BLOOD UREA NITROGEN 50.9 mg/dL (7-18); MAGNESIUM 2.2 mg/dL (1.8-2.4)
[2021-09-23 17:30] LABS: CREATININE 3.3 mg/dL (0.55-1.3); PHOSPHOROUS 3.3 mg/dL (2.5-4.9)
[2021-09-23] MEDS ORDERED: CEFTRIAXONE 1,000 MG in DEXTROSE 5%-WATER - 50 ML IVPB ONE (17:30)
[2021-09-23 17:31] LABS: TOT PROT 7.2 g/dl (6.4-8.2)
[2021-09-23 17:34] LABS: BILIRUBIN,TOTAL 0.4 mg/dL (0.2-1)
[2021-09-23] MEDS ORDERED: CEFTRIAXONE 1 GM/50 ML BAG ONE (18:23)
[2021-09-23] MEDS: HEPARIN NA (PORCINE) 5,000 UNITS/ML 1ML VIAL SQ SCH (22:59)
[2021-09-24] MEDS ORDERED: HEPARIN NA (PORCINE) 5,000 UNITS/ML 1ML VIAL ONE ×3 (01:13→14:29)
[2021-09-24] MEDS ORDERED: SODIUM CHLORIDE 1,000 ML IV SCH (01:15)
[2021-09-24] MEDS: HEPARIN NA (PORCINE) 5,000 UNITS/ML 1ML VIAL SQ SCH ×3 (01:17→14:33)
[2021-09-24] MEDS ORDERED: ACETAMINOPHEN 1000 MG/100 ML BAG IVPB ONE (04:05)
[2021-09-24] MEDS ORDERED: ACETAMINOPHEN INJECTION 100 ML IVPB ONE (04:05)
[2021-09-24 07:52] LABS: BASO % 0.2 % (0-2.0); EOS % 1.1 % (0-4.5); HEMATOCRIT 23.5 % (32.4-45.2); HEMOGLOBIN 7.8 GM/dL (10.7-15.3); LYMPH % 4.4 % (8-40); MCH 30.9 pg (25.7-33.7); MCHC 33.3 g/dl (32.0-36.0); MEAN CELL VOLUME 92.9 fl (80-96); MEAN PLT VOLUME 9.4 fl (7.5-11.1); MONO % 8.1 % (3.8-10.2); NEUT % 86.2 % (42.8-82.8); PLATELET COUNT 236 10^3/uL (134-434); RBC 2.53 M/mm3 (3.60-5.2); RDW 13.3 % (11.6-15.6); WHITE BLOOD COUNT 12.1 K/mm3 (4.0-10.0)
[2021-09-24 08:07] LABS: CALCIUM 8.1 mg/dL (8.5-10.1)
[2021-09-24 08:10] LABS: ALBUMIN 2.4 g/dl (3.4-5.0); BLOOD UREA NITROGEN 52.5 mg/dL (7-18)
[2021-09-24 08:11] LABS: CREATININE 3.2 mg/dL (0.55-1.3); PHOSPHOROUS 3.4 mg/dL (2.5-4.9)
[2021-09-24 08:14] LABS: BILIRUBIN,TOTAL 0.4 mg/dL (0.2-1); TOT PROT 6.1 g/dl (6.4-8.2)
[2021-09-24] MEDS: INSULIN SLIDING SCALE (NOVOLOG) 1 VIAL SQ SCH ×6 (08:35→20:53)
[2021-09-24] MEDS: SODIUM CHLORIDE 1,000 ML IV SCH (09:01)
[2021-09-24] MEDS ORDERED: CEFTRIAXONE 1 GM/50 ML BAG ONE (09:38)
[2021-09-24] MEDS: CEFTRIAXONE 1 GM in DEXTROSE 5%-WATER - 50 ML IVPB SCH (09:42)
[2021-09-24] MEDS ORDERED: LEVOTHYROXINE NA 150 MCG TABLET PO SCH (10:00)
[2021-09-24] MEDS ORDERED: HYDROCHLOROTHIAZIDE 12.5 MG CAPSULE (FP) PO SCH (10:00)
[2021-09-24] MEDS ORDERED: traMADol HCL 50 MG TABLET PO PRN (11:30)
[2021-09-24] MEDS ORDERED: ACETAMINOPHEN 325 MG TABLET (FP) PO PRN (11:30)
[2021-09-24] MEDS ORDERED: traMADol HCL 50 MG TABLET ONE ×2 (11:46→20:06)
[2021-09-24] MEDS ORDERED: ACETAMINOPHEN 325 MG TABLET (FP) ONE (16:02)
[2021-09-24] MEDS: traMADol HCL 50 MG TABLET PO PRN (20:12)
[2021-09-25] MEDS: INSULIN SLIDING SCALE (NOVOLOG) 1 VIAL SQ SCH ×6 (00:13→21:07)
[2021-09-25] MEDS: traMADol HCL 50 MG TABLET PO PRN ×3 (05:58→21:07)
[2021-09-25] MEDS: HEPARIN NA (PORCINE) 5,000 UNITS/ML 1ML VIAL SQ SCH ×3 (06:01→21:06)
[2021-09-25] MEDS: LEVOTHYROXINE NA 125 MCG TABLET (FP) PO SCH (06:01)
[2021-09-25] MEDS: SODIUM CHLORIDE 1,000 ML IV SCH (08:13)
[2021-09-25] MEDS ORDERED: DEXTROSE 5%-WATER - 50 ML IVPB ONE (09:55)
[2021-09-25] MEDS ORDERED: cefTRIAXone SODIUM 1 GM VIAL ONE (09:55)
[2021-09-25] MEDS: CEFTRIAXONE 1 GM in DEXTROSE 5%-WATER - 50 ML IVPB SCH (09:58)
[2021-09-25 10:53] LABS: BASO % 0.6 % (0-2.0); EOS % 2.5 % (0-4.5); HEMATOCRIT 23.8 % (32.4-45.2); HEMOGLOBIN 7.9 GM/dL (10.7-15.3); LYMPH % 7.8 % (8-40); MCH 31.2 pg (25.7-33.7); MCHC 33.1 g/dl (32.0-36.0); MEAN CELL VOLUME 94.2 fl (80-96); MEAN PLT VOLUME 9.8 fl (7.5-11.1); MONO % 8.2 % (3.8-10.2); NEUT % 80.9 % (42.8-82.8); PLATELET COUNT 283 10^3/uL (134-434); RBC 2.53 M/mm3 (3.60-5.2); RDW 13.7 % (11.6-15.6); WHITE BLOOD COUNT 9.8 K/mm3 (4.0-10.0)
[2021-09-25 11:26] LABS: ALBUMIN 2.5 g/dl (3.4-5.0); BLOOD UREA NITROGEN 37.9 mg/dL (7-18); CALCIUM 8.3 mg/dL (8.5-10.1)
[2021-09-25 11:28] LABS: MAGNESIUM 2.2 mg/dL (1.8-2.4)
[2021-09-25 11:29] LABS: CREATININE 2.3 mg/dL (0.55-1.3); PHOSPHOROUS 3.5 mg/dL (2.5-4.9)
[2021-09-25 11:31] LABS: BILIRUBIN,TOTAL 0.3 mg/dL (0.2-1); TOT PROT 6.4 g/dl (6.4-8.2)
[2021-09-25] MEDS ORDERED: ONDANSETRON 4 MG/2 ML VIAL IVPUSH ONE (12:00)
[2021-09-25] MEDS ORDERED: SODIUM CHLORIDE 0.45% 1,000 ML IV SCH (13:00)
[2021-09-25] MEDS: MECLIZINE HCL 12.5 MG TABLET PO SCH ×3 (13:18→17:20)
[2021-09-26] MEDS: MECLIZINE HCL 12.5 MG TABLET PO SCH ×3 (00:29→12:10)
[2021-09-26] MEDS: INSULIN SLIDING SCALE (NOVOLOG) 1 VIAL SQ SCH ×4 (00:38→12:08)
[2021-09-26] MEDS: LEVOTHYROXINE NA 125 MCG TABLET (FP) PO SCH (06:16)
[2021-09-26] MEDS: HEPARIN NA (PORCINE) 5,000 UNITS/ML 1ML VIAL SQ SCH ×2 (06:16→13:17)
[2021-09-26] MEDS ORDERED: cefTRIAXone SODIUM 1 GM VIAL ONE (10:06)
[2021-09-26] MEDS ORDERED: DEXTROSE 5%-WATER - 50 ML IVPB ONE (10:06)
[2021-09-26] MEDS: CEFTRIAXONE 1 GM in DEXTROSE 5%-WATER - 50 ML IVPB SCH (10:23)
[2021-09-26 11:49] LABS: EOS % 3.7 % (0-4.5); HEMOGLOBIN 7.4 GM/dL (10.7-15.3); LYMPH % 15.2 % (8-40); MCH 31.3 pg (25.7-33.7); MCHC 33.4 g/dl (32.0-36.0); MEAN CELL VOLUME 93.6 fl (80-96); MEAN PLT VOLUME 9.2 fl (7.5-11.1); MONO % 8.2 % (3.8-10.2); NEUT % 71.9 % (42.8-82.8); PLATELET COUNT 301 10^3/uL (134-434); RBC 2.35 M/mm3 (3.60-5.2); RDW 13.6 % (11.6-15.6); WHITE BLOOD COUNT 7.9 K/mm3 (4.0-10.0)
[2021-09-26 12:14] LABS: CALCIUM 8.1 mg/dL (8.5-10.1)
[2021-09-26 12:15] LABS: ALBUMIN 2.2 g/dl (3.4-5.0); BILIRUBIN,TOTAL 0.2 mg/dL (0.2-1); BLOOD UREA NITROGEN 37.3 mg/dL (7-18); MAGNESIUM 2.1 mg/dL (1.8-2.4)
[2021-09-26 12:17] LABS: CREATININE 2.3 mg/dL (0.55-1.3)
[2021-09-26 14:35] VITALS: BP 141/73; PULSE 76; TEMP 98.5
== END 2021-09-26 14:54 | disposition home or self-care (01) | DRG 683 ==
LOC: JER 15:12 → JERBED 18:43 → J5S 09-24 22:24
PROVIDERS: ADMIT Internal Medicine; ATTEND Internal Medicine
DX: N17.9 Acute kidney failure, unspecified (principal); N39.0 Urinary tract infection, site not specified; E87.1 Hypo-osmolality and hyponatremia; N18.4 Chronic kidney disease, stage 4 (severe); I12.9 Hypertensive chronic kidney disease with stage 1 through stage 4 chronic kidney disease, or unspecified chronic kidney disease; E10.65 Type 1 diabetes mellitus with hyperglycemia; E03.9 Hypothyroidism, unspecified; R10.32 Left lower quadrant pain; B96.20 Unspecified Escherichia coli [E. coli] as the cause of diseases classified elsewhere; D25.9 Leiomyoma of uterus, unspecified; D72.829 Elevated white blood cell count, unspecified; E86.0 Dehydration
CPT/HCPCS: 0241U-QW; 36415; 74176-TC; 76775-TC; 80053; 81003; 82010; 82607; 82728; 82746; 82747; 82803; 82962; 83036; 83540; 83550; 83690; 83735; 84100; 84466; 84703; 85014; 85025; 85045; 87040; 87086; 87186; 87491; 87591; 93005; 93010; 99285-25; J1644

== ENCOUNTER 2022-05-08 06:00 | Emergency (ER) | payer BC, OTHER ==
[2022-05-08 06:09] VITALS: RESP 18; TEMP 98; BMI 23.9
[2022-05-08] MEDS ORDERED: ACETAMINOPHEN 1000 MG/100 ML BAG IVPB ONE (07:20)
[2022-05-08] MEDS ORDERED: LACTATED RINGERS SOLUTION 1000 ML INFUS.BAG IV ONE (07:21)
[2022-05-08] MEDS ORDERED: ACETAMINOPHEN INJECTION 100 ML IVPB ONE (07:25)
[2022-05-08 07:28] LABS: BASO % 0.7 % (0-2.0); HEMATOCRIT 26.2 % (32.4-45.2); LYMPH % 9.9 % (8-40); MCH 32.1 pg (25.7-33.7); MCHC 34.4 g/dl (32.0-36.0); MEAN CELL VOLUME 93.5 fl (80-96); MEAN PLT VOLUME 9.2 fl (7.5-11.1); MONO % 6.8 % (3.8-10.2); NEUT % 78.6 % (42.8-82.8); PLATELET COUNT 262 10^3/uL (134-434); WHITE BLOOD COUNT 6.8 K/mm3 (4.0-10.0)
[2022-05-08 07:31] LABS: ACTIVATED PTT 35.4 SECONDS (25.2-36.5)
[2022-05-08 07:32] LABS: ALBUMIN 2.9 g/dl (3.4-5.0); BLOOD UREA NITROGEN 45.8 mg/dL (7-18)
[2022-05-08 07:35] LABS: CREATININE 3.4 mg/dL (0.55-1.3)
[2022-05-08 07:36] LABS: BILIRUBIN,TOTAL 0.2 mg/dL (0.2-1); TOT PROT 6.7 g/dl (6.4-8.2)
[2022-05-08 08:00] LABS: EPI CELLS 29 /uL (0-25.1); HYALINE CASTS 1 /uL (0-3.1); PH,URINE 6.5 (5.0-8.0); URINE APPEARANCE CLEAR; URINE BACTERIA 433 /uL (0-1359); URINE BILIRUBIN NEGATIVE (NEGATIVE); URINE COLOR YELLOW; URINE GLUCOSE (UA) 1+ (NEGATIVE); URINE KETONE NEGATIVE (NEGATIVE); URINE LEUK ESTERASE TRACE (NEGATIVE); URINE NITRITE NEGATIVE (NEGATIVE); URINE PROTEIN 2+ (NEGATIVE); URINE RBC 14 /uL (0-23.9); URINE UROBILINOGEN 0.2 mg/dL (0.2-1.0); URINE WBC 112 /uL (0-25.8)
[2022-05-08 08:01] LABS: HCG,QUALITATIVE URINE Negative
[2022-05-08 08:14] LABS: INR 0.97 (0.83-1.09); PROTHROMBIN TIME (PATIENT) 11.3 SEC (9.7-13.0)
[2022-05-08] MEDS ORDERED: CEFTRIAXONE 1 GM/50 ML BAG ONE (08:31)
[2022-05-08 11:03] VITALS: BP 127/73; PULSE 72
[2022-05-08] MEDS ORDERED: morphine CARPU-JECT 2 MG/1 ML DISP.SYRIN IVPUSH ONE (11:43)
[2022-05-08 12:51] LABS: EPI CELLS 19 /uL (0-25.1); HYALINE CASTS 0 /uL (0-3.1); PH,URINE 7.5 (5.0-8.0); URINE APPEARANCE CLEAR; URINE BACTERIA 133 /uL (0-1359); URINE BILIRUBIN NEGATIVE (NEGATIVE); URINE COLOR YELLOW; URINE GLUCOSE (UA) 1+ (NEGATIVE); URINE KETONE NEGATIVE (NEGATIVE); URINE LEUK ESTERASE NEGATIVE (NEGATIVE); URINE NITRITE NEGATIVE (NEGATIVE); URINE PROTEIN 2+ (NEGATIVE); URINE RBC 6 /uL (0-23.9); URINE UROBILINOGEN 0.2 mg/dL (0.2-1.0); URINE WBC 19 /uL (0-25.8)
== END 2022-05-08 14:08 | disposition home or self-care (01) ==
LOC: JER 06:00
PROC: 3E0333Z Introduction of Anti-inflammatory into Peripheral Vein, Percutaneous Approach (ICD-10-PCS; principal; 2022-05-08)
PROC: 3E03329 Introduction of Other Anti-infective into Peripheral Vein, Percutaneous Approach (ICD-10-PCS; 2022-05-08)
PROC: 3E033NZ Introduction of Analgesics, Hypnotics, Sedatives into Peripheral Vein, Percutaneous Approach (ICD-10-PCS; 2022-05-08)
DX: N83.291 Other ovarian cyst, right side (principal); D25.9 Leiomyoma of uterus, unspecified
CPT/HCPCS: 0241U-QW; 36415; 74176-TC; 76856-TC; 80053; 81003; 83690; 84703; 85025; 85610; 85730; 86850; 86900; 86901; 87086; 99285-25

== ENCOUNTER 2022-06-03 19:48 | Observation (INO) | payer BC, OTHER ==
[2022-06-03 20:02] VITALS: BMI 24.4
[2022-06-03] MEDS ORDERED: ACETAMINOPHEN 1000 MG/100 ML BAG IVPB ONE (20:27)
[2022-06-03] MEDS ORDERED: SODIUM CHLORIDE 1,000 ML IV STA (20:29)
[2022-06-03] MEDS ORDERED: KETOROLAC TROMETHAMINE 15 MG/ML VIAL IVPUSH ONE (20:29)
[2022-06-03] MEDS ORDERED: ACETAMINOPHEN INJECTION 100 ML IVPB ONE (20:34)
[2022-06-03] MEDS ORDERED: KETOROLAC TROMETHAMINE 15 MG/ML VIAL ONE (20:34)
[2022-06-03 21:03] LABS: BASO % 1.3 % (0-2.0); HEMATOCRIT 26.7 % (32.4-45.2); LYMPH % 22.4 % (8-40); MCH 30.9 pg (25.7-33.7); MCHC 33.7 g/dl (32.0-36.0); MEAN CELL VOLUME 91.8 fl (80-96); MEAN PLT VOLUME 8.7 fl (7.5-11.1); MONO % 8.6 % (3.8-10.2); NEUT % 58.7 % (42.8-82.8); PLATELET COUNT 250 10^3/uL (134-434); RDW 13.4 % (11.6-15.6); WHITE BLOOD COUNT 4.8 K/mm3 (4.0-10.0)
[2022-06-03 21:09] LABS: INR 0.84 (0.83-1.09); PROTHROMBIN TIME (PATIENT) 9.8 SEC (9.7-13.0)
[2022-06-03 21:12] LABS: ACTIVATED PTT 37.8 SECONDS (25.2-36.5)
[2022-06-03 21:24] LABS: CALCIUM 7.5 mg/dL (8.5-10.1)
[2022-06-03 21:25] LABS: BLOOD UREA NITROGEN 57.1 mg/dL (7-18)
[2022-06-03 21:27] LABS: CREATININE 2.5 mg/dL (0.55-1.3)
[2022-06-03 21:29] LABS: BILIRUBIN,TOTAL 0.2 mg/dL (0.2-1); TOT PROT 6.8 g/dl (6.4-8.2)
[2022-06-03 23:21] LABS: EPI CELLS 19 /uL (0-25.1); HYALINE CASTS 1 /uL (0-3.1); PH,URINE 5.5 (5.0-8.0); URINE APPEARANCE CLOUDY; URINE BACTERIA >9,000 /uL (0-1359); URINE BILIRUBIN NEGATIVE (NEGATIVE); URINE COLOR YELLOW; URINE GLUCOSE (UA) 2+ (NEGATIVE); URINE KETONE NEGATIVE (NEGATIVE); URINE LEUK ESTERASE 1+ (NEGATIVE); URINE NITRITE NEGATIVE (NEGATIVE); URINE PROTEIN 3+ (NEGATIVE); URINE RBC 11 /uL (0-23.9); URINE UROBILINOGEN 0.2 mg/dL (0.2-1.0); URINE WBC 350 /uL (0-25.8)
[2022-06-03] MEDS ORDERED: CEFTRIAXONE 1,000 MG in DEXTROSE 5%-WATER - 50 ML IVPB ONE (23:56)
[2022-06-04] MEDS ORDERED: CEFTRIAXONE 1 GM/50 ML BAG ONE ×2 (00:16→01:00)
[2022-06-04] MEDS ORDERED: LACTULOSE 20 GM/30 ML UDC (FOR ORAL USE ONLY) PO ONE ×2 (02:42→14:21)
[2022-06-04] MEDS ORDERED: POLYETHYLENE GLYCOL (HEALTHYLAX) 3350 17 GM PACKET PO ONE (02:45)
[2022-06-04] MEDS ORDERED: POLYETHYLENE GLYCOL (HEALTHYLAX) 3350 17 GM PACKET PO SCH (02:45)
[2022-06-04] MEDS ORDERED: LACTULOSE 20 GM/30 ML UDC (FOR ORAL USE ONLY) ONE (02:58)
[2022-06-04] MEDS ORDERED: PATIENT'S OWN MEDICATION (NON-FORMULARY) (Levothyroxine Sodium [Levothyroxine] 137 MCG Cap PO SCH (05:30)
[2022-06-04 06:53] VITALS: RESP 18
[2022-06-04] MEDS: INSULIN SLIDING SCALE (NOVOLOG) 1 VIAL SQ SCH ×3 (06:59→16:50)
[2022-06-04] MEDS ORDERED: LEVOTHYROXINE NA 125 MCG TABLET (FP) PO SCH (07:00)
[2022-06-04] MEDS: POLYETHYLENE GLYCOL (HEALTHYLAX) 3350 17 GM PACKET PO SCH ×3 (07:00→21:43)
[2022-06-04 08:58] LABS: BASO % 1.5 % (0-2.0); EOS % 9.2 % (0-4.5); HEMATOCRIT 25.1 % (32.4-45.2); HEMOGLOBIN 8.9 GM/dL (10.7-15.3); LYMPH % 21.5 % (8-40); MCH 32.5 pg (25.7-33.7); MCHC 35.5 g/dl (32.0-36.0); MEAN CELL VOLUME 91.5 fl (80-96); MEAN PLT VOLUME 9.1 fl (7.5-11.1); NEUT % 61.8 % (42.8-82.8); PLATELET COUNT 252 10^3/uL (134-434); RBC 2.74 M/mm3 (3.60-5.2); RDW 13.3 % (11.6-15.6); WHITE BLOOD COUNT 4.5 K/mm3 (4.0-10.0)
[2022-06-04 09:13] LABS: CHLORIDE 109 mmol/L (98-107); SODIUM 135 mmol/L (136-145)
[2022-06-04 09:16] LABS: ALBUMIN 3.1 g/dl (3.4-5.0); ANION GAP 4 MMOL/L (8-16); CALCIUM 7.7 mg/dL (8.5-10.1); CO2 23 mmol/L (21-32); GLUCOSE,RANDOM 165 mg/dL (74-106); MAGNESIUM 2.2 mg/dL (1.8-2.4)
[2022-06-04 09:20] LABS: PHOSPHOROUS 3.5 mg/dL (2.5-4.9); SGOT/AST 22 U/L (15-37); SGPT/ALT 24 U/L (13-61)
[2022-06-04 09:22] LABS: ALK PHOS 115 U/L (45-117); BILIRUBIN,TOTAL 0.2 mg/dL (0.2-1)
[2022-06-04 09:46] LABS: ERYTHROCYTE SEDIMENTATION RATE 70 mm/hr (0-30)
[2022-06-04] MEDS ORDERED: HYDROCHLOROTHIAZIDE 25 MG TABLET (FP) PO SCH (10:00)
[2022-06-04] MEDS: FUROSEMIDE 40 MG TABLET (FP) PO SCH (10:46)
[2022-06-04] MEDS: HEPARIN NA (PORCINE) 5,000 UNITS/ML 1ML VIAL SQ SCH ×2 (10:46→21:42)
[2022-06-04] MEDS: CEFTRIAXONE 1 GM in DEXTROSE 5%-WATER - 50 ML IVPB SCH (10:46)
[2022-06-04] MEDS: amLODIPine BESYLATE 5 MG TABLET (FP) PO SCH (10:46)
[2022-06-04] MEDS ORDERED: PEG 3350/NA SULF BICARB CL/KCL 4000 ML SOLN.RECON PO ONE (16:28)
[2022-06-04] MEDS: LISINOPRIL 20 MG TABLET PO SCH (21:42)
[2022-06-04] MEDS ORDERED: LISINOPRIL 10 MG TABLET PO SCH (22:00)
[2022-06-05] MEDS: POLYETHYLENE GLYCOL (HEALTHYLAX) 3350 17 GM PACKET PO SCH ×3 (06:06→21:20)
[2022-06-05] MEDS: LEVOTHYROXINE 112 MCG, LEVOTHYROXINE 25 MCG PO SCH (06:06)
[2022-06-05] MEDS: INSULIN SLIDING SCALE (NOVOLOG) 1 VIAL SQ SCH ×3 (09:31→18:33)
[2022-06-05] MEDS: CEFTRIAXONE 1 GM in DEXTROSE 5%-WATER - 50 ML IVPB SCH (10:26)
[2022-06-05] MEDS: HEPARIN NA (PORCINE) 5,000 UNITS/ML 1ML VIAL SQ SCH ×2 (10:26→21:20)
[2022-06-05] MEDS: amLODIPine BESYLATE 5 MG TABLET (FP) PO SCH (10:26)
[2022-06-05] MEDS: FUROSEMIDE 40 MG TABLET (FP) PO SCH (10:26)
[2022-06-05] MEDS: LISINOPRIL 20 MG TABLET PO SCH (21:20)
[2022-06-06] MEDS: POLYETHYLENE GLYCOL (HEALTHYLAX) 3350 17 GM PACKET PO SCH ×2 (05:23→15:03)
[2022-06-06] MEDS: LEVOTHYROXINE 112 MCG, LEVOTHYROXINE 25 MCG PO SCH (06:07)
[2022-06-06] MEDS: INSULIN SLIDING SCALE (NOVOLOG) 1 VIAL SQ SCH ×3 (06:08→18:07)
[2022-06-06] MEDS: FUROSEMIDE 40 MG TABLET (FP) PO SCH (09:31)
[2022-06-06] MEDS: HEPARIN NA (PORCINE) 5,000 UNITS/ML 1ML VIAL SQ SCH (09:31)
[2022-06-06] MEDS: CEFTRIAXONE 1 GM in DEXTROSE 5%-WATER - 50 ML IVPB SCH (09:32)
[2022-06-06] MEDS: amLODIPine BESYLATE 5 MG TABLET (FP) PO SCH (09:32)
[2022-06-06 12:13] LABS: BASO % 1.9 % (0-2.0); EOS % 6.8 % (0-4.5); HEMATOCRIT 26.3 % (32.4-45.2); HEMOGLOBIN 9.1 GM/dL (10.7-15.3); LYMPH % 21.2 % (8-40); MCH 31.7 pg (25.7-33.7); MCHC 34.4 g/dl (32.0-36.0); MEAN CELL VOLUME 92.3 fl (80-96); MONO % 6.4 % (3.8-10.2); NEUT % 63.7 % (42.8-82.8); PLATELET COUNT 292 10^3/uL (134-434); RBC 2.85 M/mm3 (3.60-5.2); RDW 13.5 % (11.6-15.6); WHITE BLOOD COUNT 4.6 K/mm3 (4.0-10.0)
[2022-06-06 12:40] LABS: CALCIUM 8.6 mg/dL (8.5-10.1)
[2022-06-06 12:44] LABS: CREATININE 2.3 mg/dL (0.55-1.3)
[2022-06-06 12:45] LABS: BILIRUBIN,TOTAL 0.2 mg/dL (0.2-1); TOT PROT 7.2 g/dl (6.4-8.2)
[2022-06-06 15:28] VITALS: BP 134/90; PULSE 85; TEMP 98.1
== END 2022-06-06 17:03 | disposition home or self-care (01) ==
LOC: JER 19:48 → JERBED 06-04 02:27 → UNDOADMOB 06-04 02:27 → INTOOBSV 06-04 02:27 → JERBED 06-04 06:44 → J5S 06-04 06:44 → JERBED 06-05 09:51 → J5S 06-05 09:51
PROVIDERS: ADMIT Internal Medicine; ATTEND Nurse Practitioner Family
PROC: 3E033NZ Introduction of Analgesics, Hypnotics, Sedatives into Peripheral Vein, Percutaneous Approach (ICD-10-PCS; principal; 2022-06-05)
PROC: 3E03329 Introduction of Other Anti-infective into Peripheral Vein, Percutaneous Approach (ICD-10-PCS; 2022-06-05)
PROC: 3E023GC Introduction of Other Therapeutic Substance into Muscle, Percutaneous Approach (ICD-10-PCS; 2022-06-05)
PROC: 3E0333Z Introduction of Anti-inflammatory into Peripheral Vein, Percutaneous Approach (ICD-10-PCS; 2022-06-05)
PROC: 3E0337Z Introduction of Electrolytic and Water Balance Substance into Peripheral Vein, Percutaneous Approach (ICD-10-PCS; 2022-06-05)
DX: E11.22 Type 2 diabetes mellitus with diabetic chronic kidney disease (principal); I12.9 Hypertensive chronic kidney disease with stage 1 through stage 4 chronic kidney disease, or unspecified chronic kidney disease; N18.9 Chronic kidney disease, unspecified; D21.9 Benign neoplasm of connective and other soft tissue, unspecified; E11.65 Type 2 diabetes mellitus with hyperglycemia; N39.0 Urinary tract infection, site not specified; N17.9 Acute kidney failure, unspecified; K59.00 Constipation, unspecified
CPT/HCPCS: 0241U-QW; 36415; 74176-TC; 76830-TC; 80053; 81003; 82962; 83036; 83735; 84100; 84703; 85025; 85610; 85651; 85730; 86140; 86301; 86304; 86850; 86900; 86901; 87086; 87186; 93005; 93010; 99285-25; G0378; J1644

== ENCOUNTER 2022-07-21 12:16 | Emergency (ER) | payer BC, OTHER ==
[2022-07-21 12:34] VITALS: RESP 19; TEMP 99; BMI 26.5
[2022-07-21 14:24] LABS: BASO % 1.3 % (0-2.0); EOS % 6.5 % (0-4.5); HEMATOCRIT 23.8 % (32.4-45.2); HEMOGLOBIN 8.2 GM/dL (10.7-15.3); LYMPH % 18.9 % (8-40); MCHC 34.4 g/dl (32.0-36.0); MEAN CELL VOLUME 92.9 fl (80-96); MEAN PLT VOLUME 9.4 fl (7.5-11.1); NEUT % 65.3 % (42.8-82.8); PLATELET COUNT 230 10^3/uL (134-434); RBC 2.57 M/mm3 (3.60-5.2); RDW 13.6 % (11.6-15.6); WHITE BLOOD COUNT 5.2 K/mm3 (4.0-10.0)
[2022-07-21 14:42] LABS: CHLORIDE 105 mmol/L (98-107); POTASSIUM 4.3 mmol/L (3.5-5.1); SODIUM 133 mmol/L (136-145)
[2022-07-21 14:44] LABS: ANION GAP 5 MMOL/L (8-16); BLOOD UREA NITROGEN 75.5 mg/dL (7-18); CALCIUM 8.5 mg/dL (8.5-10.1); CO2 22 mmol/L (21-32)
[2022-07-21 14:45] LABS: ALBUMIN 3.4 g/dl (3.4-5.0); GLUCOSE,RANDOM 145 mg/dL (74-106)
[2022-07-21 14:47] LABS: CREATININE 2.8 mg/dL (0.55-1.3)
[2022-07-21 14:48] LABS: SGOT/AST 18 U/L (15-37)
[2022-07-21 14:49] LABS: BILIRUBIN,TOTAL 0.2 mg/dL (0.2-1); TOT PROT 7.1 g/dl (6.4-8.2)
[2022-07-21 14:50] LABS: ALK PHOS 106 U/L (45-117)
[2022-07-21 14:52] LABS: SGPT/ALT 22 U/L (13-61)
[2022-07-21 15:26] LABS: ERYTHROCYTE SEDIMENTATION RATE 8 mm/hr (0-30)
[2022-07-21 16:40] VITALS: BP 185/86; PULSE 80
== END 2022-07-21 16:47 | disposition home or self-care (01) ==
LOC: JER 12:16
DX: E11.649 Type 2 diabetes mellitus with hypoglycemia without coma (principal); M79.645 Pain in left finger(s); M79.644 Pain in right finger(s); L98.8 Other specified disorders of the skin and subcutaneous tissue; S60.032A Contusion of left middle finger without damage to nail, initial encounter; S60.041A Contusion of right ring finger without damage to nail, initial encounter; X58.XXXA Exposure to other specified factors, initial encounter
CPT/HCPCS: 36415; 71045-TC-FY; 80053; 82962; 85025; 85651; 86140; 87040; 93005; 93010; 93306-TC; 99285-25

== ENCOUNTER 2023-07-19 17:34 | Emergency (ER) | payer BC, OTHER ==
[2023-07-19 17:42] VITALS: TEMP 98.3; BMI 25.9
[2023-07-19 19:23] VITALS: BP 173/73; PULSE 85; RESP 12
== END 2023-07-19 19:23 | disposition short-term general hospital (02) ==
LOC: JER 17:34
DX: R51.9 Headache, unspecified (principal); H54.7 Unspecified visual loss; H53.461 Homonymous bilateral field defects, right side
CPT/HCPCS: 70450-TC; 99285-25

== ENCOUNTER 2024-07-11 10:50 | Emergency (ER) | payer BC, OTHER ==
[2024-07-11 10:56] VITALS: BP 153/62; PULSE 85; RESP 20; TEMP 98.3; BMI 25.3
[2024-07-11 12:22] LABS: ABSOLUTE IMMATURE GRANULOCYTES 0.02 x10^3/uL (0.0-0.031); BASOPHILS # 0.04 x10^3/uL (0.01-0.08); EOSINOPHIL % 5.8 % (0.7-5.8); EOSINOPHILS # 0.32 x10^3/uL (0.04-0.36); HEMATOCRIT 23.5 % (34.1-44.9); HEMOGLOBIN 7.5 g/dL (11.2-15.7); MCHC 31.9 g/dl (32.2-35.5); MEAN CELL VOLUME 92.9 fl (79.4-94.8); MEAN PLT VOLUME 9.9 fl (9.4-12.3); MONOCYTE # 0.39 x10^3/uL (0.24-0.86); MONOCYTE % 7.1 % (4.7-12.5); PLATELET COUNT 282 x10^3/uL (182-369); RDW 15.1 % (12.3-16.6)
[2024-07-11 12:30] LABS: INR 0.97 (0.83-1.09); PROTHROMBIN TIME (PATIENT) 10.7 SEC (9.7-13.0)
[2024-07-11 12:33] LABS: ACTIVATED PTT 37.2 SECONDS (25.2-36.5)
[2024-07-11 12:49] LABS: CALCIUM 9.3 mg/dL (8.5-10.1)
[2024-07-11 12:50] LABS: ALBUMIN 3.8 g/dl (3.4-5.0); BLOOD UREA NITROGEN 98.2 mg/dL (7-18)
[2024-07-11 12:53] LABS: CREATININE 4.8 mg/dL (0.55-1.3)
[2024-07-11 12:55] LABS: BILIRUBIN,TOTAL 0.5 mg/dL (0.2-1); TOT PROT 8.1 g/dl (6.4-8.2)
[2024-07-11] MEDS: EPOETIN ALFA-EPBX 10,000 UNIT/ML VIAL SQ ONE (13:45)
[2024-07-11 21:43] LABS: MAGNESIUM 2.5 mg/dL (1.8-2.4)
== END 2024-07-11 16:40 | disposition home or self-care (01) ==
LOC: JER 10:50
PROC: 3E013GC Introduction of Other Therapeutic Substance into Subcutaneous Tissue, Percutaneous Approach (ICD-10-PCS; principal; 2024-07-11)
DX: I12.0 Hypertensive chronic kidney disease with stage 5 chronic kidney disease or end stage renal disease (principal); E11.22 Type 2 diabetes mellitus with diabetic chronic kidney disease; N18.5 Chronic kidney disease, stage 5; D63.1 Anemia in chronic kidney disease; R06.00 Dyspnea, unspecified
CPT/HCPCS: 36415; 80053; 83540; 83550; 83735; 85025; 85610; 85730; 86850; 86900; 86901; 93005; 93010; 99284-25; Q5106

== ENCOUNTER 2024-09-03 06:30 | Day surgery (SDC) | payer BC, OTHER ==
[2024-08-27 14:02] VITALS: BMI 24.7
[2024-09-03] MEDS ORDERED: PROPOFOL 20 ML ONE ×2 (07:55→08:19)
[2024-09-03] MEDS ORDERED: MIDAZOLAM HCL 2 MG/2 ML SINGLE DOSE VIAL ONE (07:55)
[2024-09-03] MEDS ORDERED: ceFAZolin SODIUM 1 GM VIAL ONE (08:01)
[2024-09-03] MEDS: ceFAZolin SODIUM 1 GM VIAL IVPB ONE (08:02)
[2024-09-03] MEDS: LIDOCAINE HCL 1%, 10 MG/ML (50 mL VIAL) INF ONE ×2 (08:11)
[2024-09-03] MEDS ORDERED: oxyCODONE HCL 5 MG TABLET PO PRN (09:20)
[2024-09-03] MEDS ORDERED: ONDANSETRON 4 MG/2 ML VIAL IVPUSH PRN (09:20)
[2024-09-03] MEDS ORDERED: ACETAMINOPHEN 1000 MG/100 ML BAG IVPB PRN (09:20)
[2024-09-03] MEDS ORDERED: LACTATED RINGERS SOLUTION 1,000 ML IV SCH (09:30)
[2024-09-03 11:54] VITALS: RESP 18
[2024-09-03 13:09] VITALS: BP 145/74; PULSE 77; TEMP 97.4
== END 2024-09-03 12:40 | disposition home or self-care (01) ==
LOC: JASU-SURG 06:30
PROVIDERS: ATTEND Surgery
PROC: 03180AD Bypass Left Brachial Artery to Upper Arm Vein with Autologous Arterial Tissue, Open Approach (ICD-10-PCS; principal; 2024-09-03 10:00)
DX: N18.6 End stage renal disease (principal); I12.0 Hypertensive chronic kidney disease with stage 5 chronic kidney disease or end stage renal disease; E10.22 Type 1 diabetes mellitus with diabetic chronic kidney disease; N17.9 Acute kidney failure, unspecified; Z79.4 Long term (current) use of insulin
CPT/HCPCS: 36836; C8000; 82962; 94760